=== PATIENT | male | born 1975 | race Caucasian/White ===

== ENCOUNTER 2017-03-12 16:34 | Emergency (ER) | payer OTHER ==
[~2017-03-12] VITALS: Ht 180.3 cm; Wt 69.0 kg
[~2017-03-12 16:34] MED LIST: NERVE PAIN; [UNRECOGNIZED DRUG - OTHER]
[2017-03-12 17:02] LABS: GLUCOSE,POINT OF CARE 198 MG/DL (70-110)
[2017-03-12] MEDS ORDERED: GABA-531 PO (17:07)
[2017-03-12] MEDS ORDERED: ALBU8HFA4 IH (17:07)
[2017-03-12] MEDS ORDERED: IBUP-2070 PO (17:07)
[2017-03-12] MEDS ORDERED: LORA1TAB3 PO (17:07)
[2017-03-12] MEDS ORDERED: RANI150T7 PO (17:07)
[2017-03-12] MEDS ORDERED: MONT10TA21 PO (17:07)
[2017-03-12] MEDS ORDERED: ESCI5SOL PO (17:07)
[2017-03-12] MEDS ORDERED: BACL10TA PO (17:07)
[2017-03-12] MEDS ORDERED: BUSP10TA23 PO (17:07)
[2017-03-12] MEDS ORDERED: HydrOXYzine HCL 25 MG TABLET PO ONE (18:45)
[2017-03-12] MEDS ORDERED: SODIUM CHLORIDE 0.9% 1,000 ML IV ONE (18:45)
[2017-03-12 20:22] VITALS: BP 117/67
== END 2017-03-12 20:23 | disposition home or self-care (01) ==
LOC: EMS 16:35
DX: F41.9 Anxiety disorder, unspecified (principal); R10.9 Unspecified abdominal pain; J45.909 Unspecified asthma, uncomplicated; F17.200 Nicotine dependence, unspecified, uncomplicated
CPT/HCPCS: 82962; 96360; 96361; 99285; J7030

== ENCOUNTER 2017-06-02 08:33 | Emergency (ER) | payer OTHER ==
[~2017-06-02] VITALS: Ht 180.3 cm; Wt 75.0 kg
[~2017-06-02 08:33] MED LIST changes: +ALBU8HFA4 IH; +BACL10TA PO; +BUSP10TA23 PO; +ESCI5SOL PO; +GABA-531 PO; +IBUP-2070 PO; +LORA1TAB3 PO; +MONT10TA21 PO; -NERVE PAIN; +RANI150T7 PO; -[UNRECOGNIZED DRUG - OTHER]
[2017-06-02 08:50] VITALS: BP 135/86
== END 2017-06-02 09:48 | disposition left against medical advice (07) ==
LOC: EMS 08:35
DX: F41.9 Anxiety disorder, unspecified (principal); F10.239 Alcohol dependence with withdrawal, unspecified; J45.909 Unspecified asthma, uncomplicated; F17.210 Nicotine dependence, cigarettes, uncomplicated; Z53.21 Procedure and treatment not carried out due to patient leaving prior to being seen by health care provider

== ENCOUNTER 2022-04-06 13:15 | Emergency (ER) | payer MEDICAID, OTHER ==
[~2022-04-06] VITALS: Ht 180.3 cm; Wt 75.0 kg
[2022-04-06 15:13] VITALS: BP 125/83
== END 2022-04-06 15:50 | disposition home or self-care (01) ==
LOC: EMS 13:15
DX: S61.217A Laceration without foreign body of left little finger without damage to nail, initial encounter (principal); F17.210 Nicotine dependence, cigarettes, uncomplicated; W27.8XXA Contact with other nonpowered hand tool, initial encounter; Y93.89 Activity, other specified; Y92.89 Other specified places as the place of occurrence of the external cause; Y99.8 Other external cause status; Z86.69 Personal history of other diseases of the nervous system and sense organs
CPT/HCPCS: 99281; Z7502

== ENCOUNTER 2025-01-27 17:57 | Emergency (ER) | payer MEDICAID, OTHER ==
[~2025-01-27] VITALS: Ht 182.9 cm; Wt 72.7 kg
[2025-01-27 18:05] VITALS: BP 132/99; PULSE 97; RESP 18; TEMP 98.1; O2SAT 97
[2025-01-27] MEDS ORDERED: ACYC-138 PO (18:35)
[2025-01-27] MEDS ORDERED: HYDR-4062 PO (18:35)
[2025-01-27] MEDS ORDERED: PRED-554 PO (18:35)
== END 2025-01-27 18:55 | disposition home or self-care (01) ==
LOC: EMS 17:57
DX: K08.89 Other specified disorders of teeth and supporting structures (principal); B02.9 Zoster without complications; R21 Rash and other nonspecific skin eruption; F17.210 Nicotine dependence, cigarettes, uncomplicated
CPT/HCPCS: 99283; Z7502